=== PATIENT | female | born 1955 | race Caucasian/White ===

== ENCOUNTER 2023-02-02 16:55 | Emergency (ER) | payer MEDICARE, OTHER, SELFPAY ==
[2023-02-02 17:02] VITALS: BP 155/139; PULSE 139; RESP 16; TEMP 36.6; O2SAT 99; BMI 26.6
--- NOTE | 2023-02-02 17:10 | XRR_ITS ---
PROCEDURE INFORMATION: Exam: XR Chest Exam date and time: 02/02/2023 5:23 PM Age: 67 years old Clinical indication: Chest wall pain; Additional info: Palpitations TECHNIQUE: Imaging protocol: Radiologic exam of the chest. Views: 1 view. COMPARISON: No relevant prior studies available. FINDINGS: Lungs: Multiple right mid and lower lung nodular opacities. Pleural spaces: No pleural effusion. No pneumothorax. Heart/Mediastinum: No cardiomegaly. Bones/joints: No acute findings. XR/XR chest 1V portable [id number] IMPRESSION: Multiple right lower lobe nodular opacities. Given no prior exams available at this time, recommend precautionary CT for further characterization.
--- NOTE | 2023-02-02 17:14 | ECG_ITS ---
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 Measurements Intervals [place] Rate: 120 P: 0 GA: 0 QRS: 88 QRSD: 86 T: -3 QT: 306 QTc: 433 Interpretive Statements ATRIAL FIBRILLATION WITH RAPID VENTRICULAR RESPONSE NONSPECIFIC T-WAVE ABNORMALITY No previous ECG available for comparison Electronically Signed On 02-04-2023 14:08:42 ASSORTER LAUNDRY by German Ayala M.D. [id number]
--- NOTE | 2023-02-02 17:30 | W.ED.ARRPALP ---
HPI - Arrhythmia/Palpitations General: Chief Complaint: Arrhythmia/Palpitations Stated Complaint: sent by Dr Santana/High BP Time Seen by Provider: 02/02/23 17:10 History of Present Illness: patient presents to the ER with complaints of elevated blood pressure and palpitations. Patient states that her heart is racing and and skipping beats. She states this has been going off and on for the last several years but discontinuously got worse until she tried to make an appointment with several family doctors in the area but none would see her and they told her to go to the ER for further evaluation. Patient has never had this worked up before. The only medicine the patient is on is Flexeril for her neck pain. Patient denies any chest pain at this time. Review of Systems General: Reports: 10 or more systems reviewed and unremarkable except in HPI and below Physical Exam Const: COMMON NORMALS: no acute distress, average body habitus, patient oriented x3, no limitations, healthy appearing, alert and well nourished HENMT: COMMON NORMALS: normocephalic, atraumatic, hearing grossly normal bilaterally, external ears normal, Normal external nose present, moist oral mucous membranes and oropharynx normal HEAD & SCALP: normocephalic and atraumatic NOSE: Normal external nose present EXTERNAL EAR: Yes external ears normal Eye: COMMON NORMALS: Equal, round and reactive pupils present, EOMs intact bilaterally, conjunctivae normal and no scleral icterus CONJUNCTIVA: Yes conjunctivae normal PUPIL: Yes Equal, round and reactive pupils present Neck/C-Spine: COMMON NORMALS: full ROM, no lymphadenopathy, supple, no meningeal signs, no JVD and Thyroid normal THYROID: Thyroid normal Chest: COMMONS NORMALS: normal inspection of the chest and normal palpation of entire chest wall Resp: COMMON NORMALS: normal respiratory effort, No retractions, No use of accessory muscles and clear to auscultation bilaterally AUSCULTATION: clear to auscultation bilaterally Cardio: COMMON NORMALS: no JVD, S1 normal heart sound present, S2 normal heart sound present, No gallops present (Cardio), No clicks present (Cardio) and No murmurs present (Cardio); negative for regular rate ( Tachycardic and irregularly irregular) and negative for regular rhythm RATE: abnormal rate ( Tachycardic and irregularly irregular) RHYTHM: abnormal rhythm HEART SOUNDS: S1 normal heart sound present and S2 normal heart sound present GI: COMMON NORMALS: Normal to inspection, nondistended, normoactive bowel sounds present, Soft to palpation, non-tender, No hepatosplenomegaly present and no masses PALPATION: Yes Soft to palpation and Yes No hepatosplenomegaly present Neuro: COMMON NORMALS: patient oriented x3 SENSORIUM/ORIENTATION: Yes alert MENINGEAL SIGNS: Yes no meningeal signs Course Vital Signs: Vital signs: Vital Signs Temperature 97.9 F 02/02/23 17:02 Pulse Rate 90 02/02/23 20:02 Respiratory Rate 18 02/02/23 20:02 Blood Pressure 127/72 02/02/23 20:02 Pulse Oximetry 95 02/02/23 20:02 Oxygen Delivery Me thod Room Air 02/02/23 20:02 MDM - Arrhythmia/Palpitations Medical Decision Making patient presents to the ER with the irregular heartbeat in the 140s and high blood pressure. A-fib with RVR. Patient was given 20 mg Cardizem IV and this eventually slowed her heart rate down nicely to about 100 beats a minute. The 127/72, patient was given Cardizem CD 120 mg and Xarelto 20 mg to take here and prescriptions to go home with. Is recommended she follow-up with her PCP in the next 7 to 10 days for further evaluation and treatment. x-ray did show multiple right lower lobe nodular opacities again so he suggested a nonemergent CT scan. Differential Diagnosis Likely palpitations and artial fibrillation; Unlikely anxiety, sinus tachycardia, artial flutter, ventricular premature beats, supraventricular tachycardia, ventricular tachycardia or WPW Medical Records I reviewed the patient's medical records. Lab Data I reviewed the patient's lab results. 02/02/23 17:50 02/02/23 17:50 Radiology Impressions Chest X-Ray 02/02/23 17:10 IMPRESSION: Multiple right lower lobe nodular opacities. Given no prior exams available at this time, recommend precautionary CT for further characterization. Laboratory Results WBC 5.87 10^3/uL (3.29-11.43) 02/02/23 17:50 RBC 4.74 10^6/uL (3.85-5.65) 02/02/23 17:50 Hgb 13.70 g/dL (11.27-16.99) 02/02/23 17:50 Hct 42.5 % (36-47) 02/02/23 17:50 MCV 89.7 fl (85-98) 02/02/23 17:50 MCH 28.9 pg (27-33) 02/02/23 17:50 MCHC 32.2 g/dL (30-55) 02/02/23 17:50 RDW 12.8 % (12.1-15.1) 02/02/23 17:50 Plt Count 233 10^3/cmm (157-399) 02/02/23 17:50 MPV 11.5 fL (7.4-10.4) H 02/02/23 17:50 Neut % (Auto) 50.8 % 02/02/23 17:50 Lymph % (Auto) 35.4 % 02/02/23 17:50 Carter % (Auto) 8.2 % 02/02/23 17:50 Eos % (Auto) 4.9 % 02/02/23 17:50 Baso % (Auto) 0.5 % 02/02/23 17:50 Neut # (Auto) 2.98 10^3/uL (1.8-7.7) 02/02/23 17:50 Lymph # (Auto) 2.1 10^3/uL (0.8-4.8) 02/02/23 17:50 Carter # (Auto) 0.5 10^3/uL (0.2-0.9) 02/02/23 17:50 Eos # (Auto) 0.3 10^3/uL (0.0-0.8) 02/02/23 17:50 Baso # (Auto) 0.0 10^3/uL (0.0-0.1) 02/02/23 17:50 Nucleated RBC % (auto) 0 % 02/02/23 17:50 Nucleated RBCs # 0.0 /100WBC 02/02/23 17:50 PT 13.10 SECONDS (12.1-14.9) 02/02/23 17:50 INR 0.97 (0.8-1.2) 02/02/23 17:50 Sodium 142 mmol/L (136-145) 02/02/23 17:50 Potassium 3.9 mmol/L (3.5-5.1) 02/02/23 17:50 Chloride 103 mmol/L (98-107) 02/02/23 17:50 Carbon Dioxide 29 mmol/L (22-29) 02/02/23 17:50 Anion Gap 13.9 (5-19) 02/02/23 17:50 BUN 26 mg/dL (8-23) H 02/02/23 17:50 Creatinine 0.8 mg/dL (0.5-0.9) 02/02/23 17:50 GFR Calculation 71.3 mL/min (90-130) L 02/02/23 17:50 Glucose 124 mg/dL (65-115) H 02/02/23 17:50 Calculated Osmolality 300 mOsm/kg (285-295) H 02/02/23 17:50 Calcium 10.4 mg/dL (8.5-10.5) 02/02/23 17:50 Magnesium 1.8 mg/dL (1.7-2.3) 02/02/23 17:50 Total Bilirubin 0.2 mg/dL (0.15-1.2) 02/02/23 17:50 AST 23 U/L (0-32) 02/02/23 17:50 ALT 24 U/L (0-33) 02/02/23 17:50 Alkaline Phosphatase 56 U/L (35-105) 02/02/23 17:50 Troponin T Baseline 14 ng/L (0-10) H 02/02/23 17:50 Total Protein 6.3 g/dL (6.6-8.7) L 02/02/23 17:50 Albumin 4.1 g/dL (3.5-5.2) 02/02/23 17:50 Globulin 2.2 g/dL (1.3-4.6) 02/02/23 17:50 TSH 3.30 uIU/mL (0.27-4.20) 02/02/23 17:50 Urine Color Yellow (Yellow) 02/02/23 19:02 Urine Appearance Hazy (CLEAR) A 02/02/23 19:02 Urine pH 7 (5-7) 02/02/23 19:02 Ur Specific [place] 1.020 (1.005-1.030) 02/02/23 19:02 Urine Protein Neg (Negative) 02/02/23 19: Urine Glucose (UA) Norm (Normal) 02/02/23 19:02 Urine Ketones Negative (Negative) 02/02/23 19:02 Urine Blood Neg (Negative) 02/02/23 19:02 Urine Nitrate Negative (Negative) 02/02/23 19:02 Urine Bilirubin Neg (Negative) 02/02/23 19:02 Urine Urobilinogen Norm mg/dL (Negative) 02/02/23 19:02 Ur Leukocyte Esterase Negative (Negative) 02/02/23 19:02 Urine RBC 0-4 /hpf (0-2) H 02/02/23 19:02 Urine WBC 0-4 /hpf (0-5) H 02/02/23 19:02 Ur Squamous Epith Cells Rare /hpf (0-5) 02/02/23 19:02 Amorphous Sediment 2+ /hpf 02/02/23 19:02 Urine Bacteria Trace /hpf (NONE) 02/02/23 19:02 Urine Mucus 2+ /hpf 02/02/23 19:02 All radiology interpretation(s) finalized by discharge EKG Data EKG 1: I personally reviewed and interpreted this EKG as follows: EKG interpretation date: 02/02/23 EKG interpretation time: 17:14 Prior EKG tracings: not available for review Interpretation: EKG showed ventricular rate 120 beats minute, QRS duration 86, QTc of 377, atrial fibrillation with RVR, nonspecific T wave abnormality Other EKG comments: Chest X-Ray 02/02/23 17:10 IMPRESSION: Multiple right lower lobe nodular opacities. Given no prior exams available at this time, recommend precautionary CT for further characterization. EKG 2: I personally reviewed and interpreted this EKG as follows: EKG interpretation date: 02/02/23 EKG interpretation time: 19:25 Prior EKG tracings: available for review Interpretation: EKG showed ventricular rate 82 beats minute, QRS duration 94, QTc of 391, atrial fibrillation, nonspecific T wave abnormality Other EKG comments: Chest X-Ray 02/02/23 17:10 IMPRESSION: Multiple right lower lobe nodular opacities. Given no prior exams available at this time, recommend precautionary CT for further characterization. Discharge Plan Discharge Patient Disposition: Home Clinical Impression: Multiple lung nodules Atrial fibrillation Qualifiers: Atrial fibrillation type: unspecified Qualified Code(s): I48.91 - Unspecified atrial fibrillation Condition: Stable Prescriptions: New Xarelto 20 mg tablet 20 mg PO DAILY Qty: 30 0RF Rx Instructions: must administer with evening meal diltiazem HCl [Cardizem CD] 120 mg capsule,extended release 24hr 120 mg PO DAILY Qty: 30 0RF Discharge Orders: Discharge ED (Routine); Ordered 02/02/23 Ordered By: Karlo Garcia Referrals: Viola Marley MD [Primary Care Provider] - 1 week Patient Instructions: A-fib (Atrial Fibrillation) (ED), Pulmonary Nodules (ED) Activity Restrictions/Additional Instructions: please take all your medicine as directed. This includes the Cardizem for rate control as well as the Xarelto for anticoagulation. Your x-ray showed multiple pulmonary lung nodules in the right lung is recommended you follow-up with a nonemergent CT scan with contrast for better classification. Please follow-up with your family practice physician within the next 7 to 10 days for further evaluation and treatment. Coding Level of Care Code ED Supervisor Photostat for Obed Harrison
[2023-02-02] MEDS: dilTIAZem 5 mg/mL SDV 5 mL 20 MG IVP (18:01)
[2023-02-02 18:04] LABS: Basophils % 0.5 %; Eosinophils # 0.3 10^3/uL (0.0-0.8); Eosinophils % 4.9 %; Hematocrit 42.5 % (36-47); Lymphocytes # 2.1 10^3/uL (0.8-4.8); Lymphocytes % 35.4 %; Mean Corpuscular HGB Conc 32.2 g/dL (30-55); Mean Corpuscular Hemoglobin 28.9 pg (27-33); Mean Corpuscular Volume 89.7 fl (85-98); Mean Platelet Volume 11.5 fL (7.4-10.4); Monocytes # 0.5 10^3/uL (0.2-0.9); Monocytes % 8.2 %; Neutrophils # 2.98 10^3/uL (1.8-7.7); Neutrophils % 50.8 %; Nucleated Red Blood Cells % 0 %; Platelet Count 233 10^3/cmm (157-399); Red Blood Count 4.74 10^6/uL (3.85-5.65); Red Cell Distribution Width 12.8 % (12.1-15.1); White Blood Count 5.87 10^3/uL (3.29-11.43)
[2023-02-02 18:16] LABS: INR 0.97 (0.8-1.2)
[2023-02-02 18:24] LABS: Troponin(5th) Baseline 14 ng/L (0-10)
[2023-02-02 18:33] LABS: Alanine Aminotransferase 24 U/L (0-33); Albumin Level 4.1 g/dL (3.5-5.2); Alkaline Phosphatase 56 U/L (35-105); Anion Gap 13.9 (5-19); Aspartate Amino Transferase 23 U/L (0-32); Blood Urea Nitrogen 26 mg/dL (8-23); Calcium 10.4 mg/dL (8.5-10.5); Carbon Dioxide 29 mmol/L (22-29); Chloride 103 mmol/L (98-107); Creatinine Clr Calc Pharmacy 67.1819; Globulin 2.2 g/dL (1.3-4.6); Glomerular Filtration Rate 71.3 mL/min (90-130); Glucose 124 mg/dL (65-115); Magnesium 1.8 mg/dL (1.7-2.3); Osmolality Calculated 300 mOsm/kg (285-295); Potassium 3.9 mmol/L (3.5-5.1); Sodium 142 mmol/L (136-145); Total Bilirubin 0.2 mg/dL (0.15-1.2); Total Protein 6.3 g/dL (6.6-8.7)
--- NOTE | 2023-02-02 18:56 | PC.NURSE ---
Report taken from DEMETRIA Spence at this time.
--- NOTE | 2023-02-02 19:25 | ECG_ITS ---
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 Measurements Intervals [place] Rate: 82 P: 0 CO: 0 QRS: 80 QRSD: 94 T: 5 QT: 352 QTc: 413 Interpretive Statements ATRIAL FIBRILLATION NONSPECIFIC T-WAVE ABNORMALITY ABNORMAL RHYTHM ECG Compared to ECG 02/02/2023 17:14:52 No significant changes Electronically Signed On 02-04-2023 14:16:39 C++ PROFESSOR by German Ayala M.D. [id number]
[2023-02-02 19:57] LABS: Add Urine Microscopic? YES; Bilirubin Urine Neg (Negative); Blood Urine Neg (Negative); Glucose Urine UA Norm (Normal); Ketones Urine Negative (Negative); Leukocyte Esterase Urine Negative (Negative); Nitrate Urine Negative (Negative); Protein Urine Neg (Negative); Urine Appearance Hazy (CLEAR); Urine Color Yellow (Yellow); Urobilinogen Urine Norm (Negative); pH Urine 7 (5-7)
[2023-02-02 20:00] LABS: Add Urine Culture? No; Amorphous Sediment Urine 2+ /hpf; Bacteria Urine TRACE /hpf; Mucus Urine 2+ /hpf; RBC Urine 0-4 /hpf (0-2); Squamous Epithelial Cell Urine RARE /hpf (0-5); WBC Urine 0-4 /hpf (0-5)
[2023-02-02 20:02] VITALS: BP 127/72; PULSE 90; RESP 18; O2SAT 95
[2023-02-02] MEDS: rivaroxaban 10 mg Tablet 20 MG PO (20:06)
[2023-02-02] MEDS: dilTIAZem ER (24HR) 120 mg Capsule PO (20:07)
[2023-02-02 20:39] VITALS: PULSE 98; RESP 20; O2SAT 97
[2023-02-02 20:58] LABS: Troponin 5 2HR 10.78 ng/L (0-10)
[2023-02-02 21:04] LABS: Troponin 5 2HR Delta -3.22 ABS# (0-10)
== END 2023-02-02 20:44 | disposition home or self-care (01) ==
PROVIDERS: Emergency Provider Emergency Medicine; PCP Family Medicine
DX: I48.91 Unspecified atrial fibrillation (principal); R91.8 Other nonspecific abnormal finding of lung field
CPT/HCPCS: 36415; 71045; 80053; 81001; 83735; 84443; 84484; 85025; 85610; 93005; 96374; 99285; J3490

== ENCOUNTER 2024-05-03 08:51 | Emergency (ER) | payer MEDICARE, OTHER, SELFPAY ==
[2024-05-03 09:00] VITALS: BP 173/110; PULSE 76; RESP 18; TEMP 37; O2SAT 91; BMI 27.4
--- NOTE | 2024-05-03 09:04 | XR_ITS ---
WS: [id number] XR chest 1V portable [id number] REASON FOR EXAM: dyspnea/cough FINDINGS: Mild to moderate tortuosity and ectasia of the thoracic aorta. Normal heart size. Calcified granulomatous disease bilaterally. No acute pulmonary parenchymal or pleural abnormality. There are vague more focal opacities in the right lower lung which were seen on previous examination of 02/02/2023 and have not changed. 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 XR/XR chest 1V portable [id number] IMPRESSION: Stable abnormal chest as above.
[2024-05-03 10:00] LABS: Basophils % 0.2 %; Eosinophils % 0.2 %; Hematocrit 41.9 % (36-47); Lymphocytes # 1.1 10^3/uL (0.8-4.8); Lymphocytes % 20.3 %; Mean Corpuscular Hemoglobin 28.5 pg (27-33); Mean Corpuscular Volume 89.1 fl (85-98); Mean Platelet Volume 10.7 fL (7.4-10.4); Monocytes # 0.8 10^3/uL (0.2-0.9); Monocytes % 15.3 %; Neutrophils % 63.8 %; Nucleated Red Blood Cells % 0 %; Platelet Count 189 10^3/cmm (157-399); Red Cell Distribution Width 12.4 % (12.1-15.1); White Blood Count 5.17 10^3/uL (3.29-11.43)
--- NOTE | 2024-05-03 10:00 | ECG_ITS ---
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
--- NOTE | 2024-05-03 10:27 | ED_ITS ---
HPI - URI/Sore Throat 2 General: Chief Complaint: Upper Respiratory Infection Stated Complaint: chest comjestion Time Seen by Provider: 05/03/24 09:04 History of Present Illness: 69-year-old female who presents emergenc y room complaining Chest congestion fatigue and cough. No fever no chest pain. Patient has a nonproductive cough denies fever has had some mild myalgias. She uses albuterol 3-4 times a day. She does smoke. She denies any sharp chest pain except when coughing. Associated symptoms: Deny abdominal pain, chills, chest pain or fever(s) Related Data Home Medications ?Medication ?Instructions ?Recorded ?Confirmed albuterol sulfate 90 mcg/actuation 2 puff inhalation Q 4H 05/03/24 05/03/24 aerosol inhaler celecoxib 200 mg capsule 200 mg PO DAILY 05/03/24 cyclobenzaprine 10 mg tablet 10 mg PO BID 05/03/24 metoprolol succinate 50 mg 50 mg PO DAILY 05/03/24 tablet,extended release 24 hr pantoprazole 40 mg tablet,delayed 40 mg PO DAILY 05/0305/03/24 release propafenone 225 mg tablet 225 mg PO BID 05/03/2405/03 rosuvastatin 5 mg tablet 5 mg PO QPM 05/03/24 5 tizanidine 6 mg capsule 6 mg PO QPM 05/03/24 5 umeclidinium 62.5 mcg/actuation 1 inh inhalation DAILY 05/03/24 05/03/24 blister powder for inhalation (Incruse Ellipta) Allergies Allergy/AdvReac Type Severity Reaction Status Date / Time No Known Allergies Allergy Verified 05/03/24 09:02 Review of Systems 2 Const: Denies: fever(s) or chills Card: Denies: chest pain Resp: Reports: dyspnea, non-productive cough, wheezing and chest congestion GI: Denies: abdominal pain : Denies: dysuria, urinary frequency or urinary urgency Musc: Denies: neck pain or back pain Skin/Breast: Denies: rash Physical Exam 2 Const: GENERAL APPEARANCE: cooperative ORIENTATION/CONSCIOUSNESS: Yes awake, Yes oriented to person, Yes oriented to place and Yes oriented to time HENMT: COMMON NORMALS: normocephalic, atraumatic and hearing grossly normal bilaterally HEAD & SCALP: normocephalic and atraumatic Resp: COMMON NORMALS: normal respiratory effort, No retractions, No use of accessory muscles and clear to auscultation bilaterally AUSCULTATION: clear to auscultation bilaterally Cardio: COMMON NORMALS: regular rate, regular rhythm and No murmurs present (Cardio) RATE: regular rate RHYTHM: regular rhythm GI: COMMON NORMALS: Soft to palpation and No hepatosplenomegaly present A USCULTATION: Yes normoactive bowel sounds PALPATION: Yes Soft to palpation, No Tenderness to palpation present (GI), No Guarding due to palpation present (GI) and Yes No hepatosplenomegaly present Extremity: COMMON NORMALS: normal to inspection, capillary refill normal, no clubbing, cyanosis or edema, no calf tenderness and no pedal edema Neuro: SENSORIUM/ORIENTATION: Yes oriented to person, Yes oriented to place and Yes oriented to time Skin: COMMON NORMALS: no rashes or lesions noted GENERAL SKIN EXAM: no rashes or lesions noted Course 2 Vital Signs: Vital signs: Vital Signs Temperature 98.6 F 05/03/24 09:00 Pulse Rate 71 05/03/24 11:56 Respiratory Rate 16 05/03/24 11:56 Blood Pressure 173/95 05/03/24 11:56 Pulse Oximetry 93 05/03/24 11:56 Oxygen Delivery Me thod Room Air 05/03/24 11:11 MDM - URI/Sore Throat Medical Decision Making Influenza A. Treat symptomatically as an outpatient. She is in the window for Tamiflu discussed for potential benefits. Ultimately patient decided against taking. Follow-up with primary care as needed. Encouraged to use albuterol every 4 hours while awake Medical Records I reviewed the patient's medical records. Lab Data I reviewed the patient's lab results. 05/03/24 09:50 05/03/24 09:50 Radiology Impressions Chest X-Ray 05/03/24 09:04 IMPRESSION: Stable abnormal chest as above. Laboratory Results WBC 5.17 10^3/uL (3.29-11.43) 05/03/24 09:50 RBC 4.70 10^6/uL (3.85-5.65) 05/03/24 09:50 Hgb 13.40 g/dL (11.27-16.99) 05/03/24 09:50 Hct 41.9 % (36-47) 05/03/24 09:50 MCV 89.1 fl (85-98) 05/03/24 09:50 MCH 28.5 pg (27-33) 05/03/24 09:50 MCHC 32.0 g/dL (30-55) 05/03/24 09:50 RDW 12.4 % (12.1-15.1) 05/03/24 09:50 Plt Count 189 10^3/cmm (157-399) 05/03/24 09:50 MPV 10.7 fL (7.4-10.4) H 05/03/24 09:50 Neut % (Auto) 63.8 % 05/03/24 09:50 Lymph % (Auto) 20.3 % 05/03/24 09:50 [place] % (Auto) 15.3 % 05/03/24 09:50 Eos % (Auto) 0.2 % 05/03/24 09:50 Baso % (Auto) 0.2 % 05/03/24 09:50 Neut # (Auto) 3.30 10^3/uL (1.8-7.7) 05/03/24 09:50 Lymph # (Auto) 1.1 10^3/uL (0.8-4.8) 05/03/24 09:50 [place] # (Auto) 0.8 10^3/uL (0.2-0.9) 05/03/24 09:50 Eos # (Auto) 0.0 10^3/uL (0.0-0.8) 05/03/24 09:50 Baso # (Auto) 0.0 10^3/uL (0.0-0.1) 05/03/24 09:50 Nucleated RBC % (auto) 0 % 05/03/24 09:50 Nucleated RBCs # 0.0 /100WBC 05/03/24 09:50 Sodium 137 mmol/L (136-145) 05/03/24 09:50 Potassium 4.2 mmol/L (3.5-5.1) 05/03/24 09:50 Chloride 103 mmol/L (98-107) 05/03/24 09:50 Carbon Dioxide 22 mmol/L (22-29) 05/03/24 09:50 Anion Gap 16.2 (5-19) 05/03/24 09:50 BUN 20 mg/dL (8-23) 05/03/24 09:50 Creatinine 0.6 mg/dL (0.5-0.9) 05/03/24 09:50 GFR Calculation 98.8 mL/min (90-130) 05/03/24 09:50 Glucose 88 mg/dL (65-115) 05/03/24 09:50 Calculated Osmolality 286 mOsm/kg (285-295) 05/03/24 09:50 Calcium 9.5 mg/dL (8.5-10.5) 05/03/24 09:50 Total Bilirubin 0.3 mg/dL (0.15-1.2) 05/03/24 09:50 AST 31 U/L (0-32) 05/03/24 09:50 ALT 24 U/L (0-33) 05/03/24 09:50 Alkaline Phosphatase 88 U/L (35-105) 05/03/24 09:50 Total Protein 6.9 g/dL (6.6-8.7) 05/03/24 09:50 Albumin 4.0 g/dL (3.5-5.2) 05/03/24 09:50 Globulin 2.9 g/dL (1.3-4.6) 05/03/24 09:50 Coronavirus (PCR) Negative (Negative) 05/03/24 09:04 Influenza A (PCR) Positive (Negative) 05/03/24 09:04 Influenza Type B (PCR) Negative (Negative) 05/03/24 09:04 RSV (PCR) Negative (Negative) 05/03/24 09:04 All radiology interpretation(s) finalized by discharge Discharge Plan Discharge Patient Disposition: Home Clinical Impression: Influenza Condition: Stable Prescriptions: No Action celecoxib 200 mg capsule 200 mg PO DAILY cyclobenzaprine 10 mg tablet 10 mg PO BID metoprolol succinate 50 mg tablet extended release 24 hr 50 mg PO DAILY propafenone 225 mg tablet 225 mg PO BID pantoprazole 40 mg tablet,delayed release (DR/EC) 40 mg PO DAILY albuterol sulfate 90 mcg/actuation HFA aerosol inhaler 2 puff INHALATION Q4H rosuvastatin 5 mg tablet 5 mg PO QPM tizanidine 6 mg capsule 6 mg PO QPM Incruse Ellipta 62.5 mcg/actuation blister with device 1 inh INHALATION DAILY Discharge Orders: Discharge ED (Routine); Ordered 05/03/24 Ordered By: Caleb Valenzuela Referrals: Viola Marley MD [Primary Care Provider] - Discharge Diet: Usual diet Discharge Activity: Increase activity as tolerated Patient Instructions: Influenza (ED), Opioid Safety, Pain Management Activity Restrictions/Additional Instructions: Thank you for choosing [facility] for your healthcare needs today. It is very important that you follow up as instructed or that you return to the Emergency Department should you have concerns or if your condition changes or worsens in any way. You are seen today with complaints of respiratory symptoms. You did test positive for influenza A. Recommend using your albuterol inhaler every 2-4 hours while awake for relief of symptoms. Print Language: Vietnamese Coding Level of Care Code ED Manager Of Human Resources for Obed Harrison
[2024-05-03 10:32] LABS: Alanine Aminotransferase 24 U/L (0-33); Alkaline Phosphatase 88 U/L (35-105); Anion Gap 16.2 (5-19); Aspartate Amino Transferase 31 U/L (0-32); Blood Urea Nitrogen 20 mg/dL (8-23); Calcium 9.5 mg/dL (8.5-10.5); Carbon Dioxide 22 mmol/L (22-29); Chloride 103 mmol/L (98-107); Creatinine Clr Calc Pharmacy 66.2528; Globulin 2.9 g/dL (1.3-4.6); Glomerular Filtration Rate 98.8 mL/min (90-130); Glucose 88 mg/dL (65-115); Osmolality Calculated 286 mOsm/kg (285-295); Potassium 4.2 mmol/L (3.5-5.1); Sodium 137 mmol/L (136-145); Total Bilirubin 0.3 mg/dL (0.15-1.2); Total Protein 6.9 g/dL (6.6-8.7)
[2024-05-03 11:11] VITALS: PULSE 62; RESP 18; O2SAT 93
[2024-05-03 11:12] VITALS: PULSE 64
[2024-05-03] MEDS: dexamethasone 10 mg/mL INJ IM (11:15)
[2024-05-03 11:34] LABS: Influenza A POSITIVE (Negative); Influenza B NEGATIVE (Negative); Respiratory Syncytial Virus Ce NEGATIVE (Negative); SARS-CoV-2 PCR NEGATIVE (Negative)
[2024-05-03 11:56] VITALS: BP 173/95; PULSE 71; RESP 16; O2SAT 93
== END 2024-05-03 12:04 | disposition home or self-care (01) ==
PROVIDERS: Emergency Provider Family Medicine; PCP Family Medicine
DX: J10.1 Influenza due to other identified influenza virus with other respiratory manifestations (principal); Z11.52 Encounter for screening for COVID-19
CPT/HCPCS: 36415; 71045; 80053; 85025; 87637; 93005; 94640; 96372; 99285; J1100